=== PATIENT | male | born 1995 | race Caucasian/White ===

== ENCOUNTER 2021-06-21 14:45 | Emergency (ER) | payer OTHER ==
[~2021-06-21] VITALS: Ht 170.2 cm; Wt 78.6 kg
[2021-06-21 14:52] VITALS: BP 134/78
--- NOTE | 2021-06-21 14:57 | NUR ---
PTBAMB TO BED 2
[2021-06-21 15:11] VITALS: BP 134/78
[2021-06-21] MEDS ORDERED: ACET-10509 PO (15:19)
[2021-06-21] MEDS ORDERED: IBUP-2213 PO (15:19)
--- NOTE | 2021-06-21 16:04 | NUR ---
Patient discharged with v/s stable. Written and verbal after care instructions given and explained. Patient alert, oriented and verbalized understanding of instructions. Ambulatory with steady gait. All questions addressed prior to discharge. ID band removed. Patient advised to follow up with PMD. Rx of ACETAMINOPHEN,IBUPROFEN given. Opportunity to ask questions provided and answered.
== END 2021-06-21 16:00 | disposition home or self-care (01) ==
LOC: MED 14:45
DX: S00.01XA Abrasion of scalp, initial encounter (principal); M79.602 Pain in left arm; M79.604 Pain in right leg; F12.90 Cannabis use, unspecified, uncomplicated; Z79.899 Other long term (current) drug therapy; V89.2XXA Person injured in unspecified motor-vehicle accident, traffic, initial encounter; Y93.89 Activity, other specified; Y92.89 Other specified places as the place of occurrence of the external cause; Y99.8 Other external cause status
CPT/HCPCS: 99282